=== PATIENT | female | born 1955 | race African-American/Black ===

== ENCOUNTER 2025-07-08 15:25 | Inpatient (IN) | payer MEDICARE, MEDICAID ==
[~2025-07-08] VITALS: Ht 180.3 cm; Wt 95.3 kg
[2025-07-08 15:27] VITALS: O2SAT 98
[2025-07-08 17:13] LABS: HEMATOCRIT. 42.8 % (36.0-48.0); HEMOGLOBIN. 13.7 g/dL (12.0-16.0); MEAN PLATELET VOLUME 11.2 fl (7.4-10.4); PLATELET 293 x1000/uL (130-400); RED BLOOD CELL COUNT 5.23 mill/uL (4.2-5.4); RED CELL DISTRIBUTION WIDTH 14.6 % (11.6-14.6)
[2025-07-08 17:27] LABS: CREATININE 1.3 mg/dL (0.6-1.0)
[2025-07-08 17:28] LABS: UREA NITROGEN BLOOD 46.0 mg/dL (9-23)
[2025-07-08 17:34] LABS: TROPONIN I HIGH SENSITIVITY 150 ng/L (3.0-34)
[2025-07-08] MEDS: KCL 20MEQ/100ML PREMIX 100 ML IV ONE (18:54)
[2025-07-08] MEDS: SODIUM CHLORIDE 0.9% (SEPSIS BOLUS) IV ONE (18:54)
[2025-07-08] MEDS: ASPIRIN 325MG EC TABLET PO ONE (19:05)
[2025-07-08 19:23] LABS: LYMPHOCYTES % MANUAL 5.0 % (20.0-60.0); MONOCYTES % MANUAL 7.0 % (2.0-8.0); NEUTROPHILS % MANUAL 88.0 % (45.0-75.0); PLATELET ESTIMATE NORMAL
[2025-07-08 19:50] LABS: TROPONIN I HIGH SENSITIVITY 94 ng/L (3.0-34)
[2025-07-08] MEDS: CEFTRIAXONE 1GM/50ML 50 ML IV ONE (20:13)
[2025-07-08] MEDS ORDERED: KCL 20MEQ/100ML PREMIX 100 ML IV NR (20:45)
[2025-07-08] MEDS ORDERED: GUAIFENESIN 200MG/10ML SUGAR FREE UDC PO PRN (21:00)
[2025-07-08] MEDS ORDERED: ACETAMINOPHEN 325MG TABLET PO PRN (21:00)
[2025-07-08] MEDS ORDERED: ONDANSETRON HCL 4MG/2ML INJ IV PRN (21:00)
[2025-07-08] MEDS ORDERED: DOCUSATE SODIUM 100MG CAPSULE PO PRN (21:00)
[2025-07-08] MEDS ORDERED: MAGNESIUM/ALUMINUM HYDROXIDE/SIMETHICONE 30ML UDC PO PRN (21:00)
[2025-07-08] MEDS ORDERED: IPRATROPIUM/ALBUTEROL 0.5-3(2.5)MG/3ML NEB HHN PRN (21:00)
[2025-07-08] MEDS: DEXT 5%/LACTATED RINGERS 1,000 ML IV SCH (21:00)
[2025-07-08] MEDS ORDERED: DEXTROSE 50% WATER 50ML SYRINGE IV PRN (21:30)
[2025-07-08 22:36] VITALS: BP 134/88; PULSE 95; RESP 20; TEMP 36.7516
[2025-07-08] MEDS: ENOXAPARIN 40MG/0.4ML SYR SUBCUT SCH (23:40)
[2025-07-09] VITALS: BP 128/83; PULSE 64; RESP 17; TEMP 37.2; O2SAT 100
[2025-07-09 04:00] VITALS: BP 143/75; PULSE 98; RESP 16; TEMP 36.8; O2SAT 100
[2025-07-09] MEDS: BLOOD SUGAR DIAGNOSTIC STRIP TEST SCH (06:17)
[2025-07-09] MEDS: ACETAMINOPHEN 325MG TABLET PO PRN (06:22)
[2025-07-09] MEDS: INSULIN LISPRO 100 UNITS/ML SUBCUT SCH (06:29)
[2025-07-09 07:08] LABS: BASOPHILS % 0.6 % (0.0-2.0); EOSINOPHILS % 0.2 % (0.0-5.0); HEMATOCRIT. 37.3 % (36.0-48.0); HEMOGLOBIN. 12.1 g/dL (12.0-16.0); LYMPHOCYTES % 13.8 % (20.0-50.0); MEAN PLATELET VOLUME 11.4 fl (7.4-10.4); MONOCYTES % 7.8 % (2.0-8.0); NEUTROPHILS % 77.6 % (40.0-76.0); PLATELET 261 x1000/uL (130-400); RED BLOOD CELL COUNT 4.60 mill/uL (4.2-5.4); RED CELL DISTRIBUTION WIDTH 14.0 % (11.6-14.6)
[2025-07-09 07:20] LABS: PROTEIN TOTAL 6.7 g/dL (6.0-8.3)
[2025-07-09 07:22] LABS: CREATININE 1.2 mg/dL (0.6-1.0); TRIGLYCERIDE 110 mg/dL (0-150); UREA NITROGEN BLOOD 46 mg/dL (9-23)
[2025-07-09 07:23] LABS: ASPARTATE AMINOTRANSFERASE 117 IU/L (<34); LDL CHOLESTEROL 97 mg/dL (5-100); T4 FREE 1.41 ng/dL (0.89-1.76)
[2025-07-09 07:24] LABS: BILIRUBIN DIRECT 0.6 mg/dL (<=3.0); PHOSPHORUS 2.7 mg/dL (2.5-4.9)
[2025-07-09 07:25] LABS: BILIRUBIN TOTAL 1.3 mg/dL (0.1-1.0)
[2025-07-09 07:53] LABS: TROPONIN I HIGH SENSITIVITY 183 ng/L (3.0-34)
[2025-07-09 08:00] VITALS: BP 134/82; PULSE 91; RESP 18; TEMP 36.7; O2SAT 100
[2025-07-09 08:28] LABS: CLARITY URINE CLOUDY (CLEAR); COLOR URINE DARK YELLOW (YELLOW); GLUCOSE URINE NEGATIVE (NEGATIVE); KETONES URINE 1+ (NEGATIVE); LEUKOCYTE ESTERASE URINE 1+ (NEGATIVE); NITRITE URINE NEGATIVE (NEGATIVE); OCCULT BLOOD URINE NEGATIVE (NEGATIVE); PH URINE 6.0 (4.5-8.0); PROTEIN URINE 2+ (NEGATIVE); SPECIFIC GRAVITY URINE 1.031 (1.005-1.030); UROBILINOGEN URINE 1.0 E.U./dL (0.2-1.0)
[2025-07-09 09:03] LABS: *AMPHETAMINES SCREEN URINE NEGATIVE (NEGATIVE)
[2025-07-09 09:06] LABS: *BARBITURATES SCREEN URINE NEGATIVE (NEGATIVE); *BENZODIAZEPINES SCREEN URINE NEGATIVE (NEGATIVE); *COCAINE SCREEN URINE NEGATIVE (NEGATIVE); CANNABINOID URINE SCREEN NEGATIVE (NEGATIVE); ECSTASY MDMA SCREEN URINE NEGATIVE (NEGATIVE); METHADONE URINE SCREEN NEGATIVE (NEGATIVE); OPIATES URINE SCREEN NEGATIVE (NEGATIVE); PHENCYCLIDINE URINE SCREEN NEGATIVE (NEGATIVE)
[2025-07-09] MEDS: MULTIVITAMINS,THER W-MINERALS TABLET PO SCH (10:04)
[2025-07-09] MEDS: POTASSIUM CHLORIDE 20MEQ/PACKET PO NR (10:04)
[2025-07-09] MEDS: PANTOPRAZOLE SODIUM 40 MG/VIAL IV SCH (10:04)
[2025-07-09 11:00] LABS: ERYTHROCYTE SEDIMENTATION RATE 35 mm/hr (0-30)
[2025-07-09 11:07] LABS: AMORPHOUS SEDIMENT URINE 1+ /lpf; BACTERIA URINE 1+; RBC URINE NONE SEEN /hpf (0-2); SQUAMOUS EPITHELIAL CELL URINE 2+ /lpf (RARE/1+)
[2025-07-09 12:00] VITALS: BP 135/72; PULSE 75; RESP 18; TEMP 36.5; O2SAT 96
[2025-07-09] MEDS: DEXT 5%/0.45% NACL 1000ML 1,000 ML IV SCH (14:30)
[2025-07-09 16:00] VITALS: BP_SYST 140; BP_SYST 158; BP_DIAS 84; BP_DIAS 88; PULSE 92; RESP 18; TEMP 36.8; O2SAT 95
[2025-07-09 17:36] LABS: INFLUENZA TYPE A Presumptive Negative (Pres. Neg.)
[2025-07-09 17:37] LABS: INFLUENZA TYPE B Presumptive Negative (Pres. Neg.); RESPIRATORY SYNCYTIAL VIRUS Not Detected (Not Detectd)
[2025-07-09 20:00] VITALS: BP 126/64; PULSE 97; RESP 18; TEMP 35.9; O2SAT 97
[2025-07-09 20:09] LABS: TROPONIN I HIGH SENSITIVITY 143 ng/L (3.0-34)
[2025-07-09] MEDS: CEFTRIAXONE 2GM/50ML 50 ML IV SCH (21:43)
[2025-07-10] VITALS: BP 130/83; PULSE 98; RESP 17; TEMP 36.6; O2SAT 95
[2025-07-10 04:00] VITALS: BP 154/88; PULSE 54; RESP 16; TEMP 36.5; O2SAT 92
[2025-07-10 08:00] VITALS: BP 140/87; PULSE 84; RESP 16; TEMP 36.6; O2SAT 96
[2025-07-10 08:22] LABS: BASOPHILS % 0.5 % (0.0-2.0); EOSINOPHILS % 1.0 % (0.0-5.0); HEMATOCRIT. 35.5 % (36.0-48.0); HEMOGLOBIN. 11.7 g/dL (12.0-16.0); LYMPHOCYTES % 26.4 % (20.0-50.0); MEAN PLATELET VOLUME 11.6 fl (7.4-10.4); MONOCYTES % 7.6 % (2.0-8.0); NEUTROPHILS % 64.5 % (40.0-76.0); PLATELET 216 x1000/uL (130-400); RED BLOOD CELL COUNT 4.41 mill/uL (4.2-5.4); RED CELL DISTRIBUTION WIDTH 14.1 % (11.6-14.6)
[2025-07-10 08:35] LABS: CREATININE 1.0 mg/dL (0.6-1.0); UREA NITROGEN BLOOD 28 mg/dL (9-23)
[2025-07-10 08:40] LABS: VITAMIN B12 SERUM 1230 pg/mL (211-911)
[2025-07-10 09:03] LABS: TROPONIN I HIGH SENSITIVITY 153 ng/L (3.0-34)
[2025-07-10] MEDS: POTASSIUM CHLORIDE 20MEQ TABLET SR PO NR (11:41)
[2025-07-10 12:00] VITALS: BP 120/71; PULSE 96; RESP 16; TEMP 36.4; O2SAT 97
[2025-07-10 16:00] VITALS: BP 134/65; PULSE 95; RESP 16; TEMP 36.1; O2SAT 98
[2025-07-10 20:00] VITALS: BP 135/75; PULSE 100; RESP 17; TEMP 36.4; O2SAT 98
[2025-07-11] VITALS: BP 159/101; PULSE 91; RESP 18; TEMP 36.6; O2SAT 96
[2025-07-11] MEDS: CLONIDINE 0.1MG TABLET PO PRN (00:06)
[2025-07-11 04:00] VITALS: BP 147/77; PULSE 107; RESP 17; TEMP 36.7; O2SAT 94
[2025-07-11 08:55] LABS: BASOPHILS % 0.5 % (0.0-2.0); EOSINOPHILS % 1.4 % (0.0-5.0); HEMATOCRIT. 33.1 % (36.0-48.0); HEMOGLOBIN. 11.0 g/dL (12.0-16.0); LYMPHOCYTES % 29.1 % (20.0-50.0); MEAN PLATELET VOLUME 11.7 fl (7.4-10.4); MONOCYTES % 8.0 % (2.0-8.0); NEUTROPHILS % 61.0 % (40.0-76.0); PLATELET 196 x1000/uL (130-400); RED BLOOD CELL COUNT 4.16 mill/uL (4.2-5.4); RED CELL DISTRIBUTION WIDTH 13.9 % (11.6-14.6)
[2025-07-11 11:20] VITALS: BP 123/80; PULSE 96; RESP 19; TEMP 36.3; O2SAT 100
[2025-07-11 13:50] LABS: CREATININE 1.0 mg/dL (0.6-1.0); UREA NITROGEN BLOOD 18 mg/dL (9-23)
[2025-07-11] MEDS: VANCOMYCIN 1.75GM PMX (XELLIA) 350 ML IV SCH (14:44)
[2025-07-11 16:00] VITALS: BP 135/75; PULSE 85; RESP 17; TEMP 36.2; O2SAT 93
[2025-07-11 20:00] VITALS: BP 149/87; PULSE 97; RESP 17; TEMP 36.5; O2SAT 100
[2025-07-12] VITALS: BP 134/74; PULSE 86; RESP 16; TEMP 36.2; O2SAT 100
[2025-07-12] MEDS: VANCOMYCIN 750MG PREMIX 150 ML IV SCH (03:23)
[2025-07-12 04:00] VITALS: BP 136/61; PULSE 98; RESP 16; TEMP 37; O2SAT 97
[2025-07-12 08:00] VITALS: BP 145/75; PULSE 105; RESP 18; TEMP 36.4; O2SAT 99
[2025-07-12 12:00] VITALS: BP 167/99; PULSE 105; RESP 18; TEMP 36.3; O2SAT 100
[2025-07-12] MEDS ORDERED: ASPI-1406 MT (14:01)
[2025-07-12] MEDS ORDERED: LIP40 MT (14:02)
[2025-07-12] MEDS ORDERED: LISI30TA36 MT (14:05)
[2025-07-12] MEDS ORDERED: LOSA25TA26 PO (14:05)
[2025-07-12] MEDS ORDERED: CEFI400C4 PO (14:07)
[2025-07-12 16:00] VITALS: BP 140/89; PULSE 102; RESP 18; TEMP 36.3; O2SAT 99
[2025-07-12 20:00] VITALS: BP 123/79; PULSE 102; RESP 18; TEMP 36.4; O2SAT 97
[2025-07-13] VITALS: BP 120/80; PULSE 101; RESP 18; TEMP 36.3; O2SAT 97
[2025-07-13 04:00] VITALS: BP 149/75; PULSE 68; RESP 18; TEMP 36.6; O2SAT 96
[2025-07-13 07:23] LABS: CREATININE 0.8 mg/dL (0.6-1.0)
[2025-07-13 07:24] LABS: UREA NITROGEN BLOOD 11 mg/dL (9-23)
[2025-07-13 08:00] VITALS: BP 155/95; PULSE 100; RESP 16; TEMP 36.3; O2SAT 99
[2025-07-13 12:00] VITALS: BP 155/79; PULSE 100; PULSE 106; RESP 18; TEMP 36.2; TEMP 36.3; O2SAT 100
[2025-07-13] MEDS: POTASSIUM CHLORIDE 20MEQ TABLET SR PO NR (12:52)
[2025-07-13 16:00] VITALS: BP 147/97; PULSE 61; RESP 18; TEMP 35.8; O2SAT 100
[2025-07-13 20:00] VITALS: BP 151/78; PULSE 103; RESP 18; TEMP 36.1; O2SAT 100
[2025-07-13] MEDS: VANCOMYCIN 1GM/200ML PMX (BAXTER) IV SCH (21:04)
[2025-07-14] VITALS: BP 151/106; PULSE 98; RESP 17; TEMP 36.7; O2SAT 99
[2025-07-14 04:00] VITALS: BP 178/95; PULSE 100; RESP 16; TEMP 36.7; O2SAT 97
[2025-07-14 08:00] VITALS: BP 158/103; PULSE 83; RESP 17; TEMP 36.9; O2SAT 96
[2025-07-14 12:00] VITALS: BP 120/66; PULSE 78; RESP 18; TEMP 36.3; O2SAT 95
[2025-07-14 16:00] VITALS: BP 128/68; PULSE 85; RESP 17; TEMP 36.6; O2SAT 94
[2025-07-14 20:00] VITALS: BP 127/76; PULSE 83; RESP 18; TEMP 36.4; O2SAT 99
[2025-07-15] VITALS: BP 147/85; PULSE 91; RESP 16; TEMP 37.2; O2SAT 99
[2025-07-15 04:00] VITALS: BP 149/84; PULSE 87; RESP 17; TEMP 36.6; O2SAT 99
[2025-07-15 12:00] VITALS: BP 139/84; PULSE 90; RESP 20; TEMP 36.6; O2SAT 100
[2025-07-15 12:47] LABS: CREATININE 0.8 mg/dL (0.6-1.0)
[2025-07-15 12:48] LABS: UREA NITROGEN BLOOD 8 mg/dL (9-23)
[2025-07-15 17:10] VITALS: BP 137/80; PULSE 80; RESP 18; TEMP 97.3
[2025-07-15] MEDS ORDERED: VANCOMYCIN 1.25GM/250ML 250 ML IV SCH (18:00)
== END 2025-07-15 18:20 | DRG 871 ==
LOC: ER 15:25 → 5WST 18:45 → EDBEDREQTM 18:51 → EDBEDREQ 18:51 → 5WST 20:46
PROVIDERS: ADMIT Hospitalist; ATTEND Hospitalist
PROC: GZ56ZZZ Individual Psychotherapy, Supportive (ICD-10-PCS; 2025-07-11)
PROC: 4A00X4Z Measurement of Central Nervous Electrical Activity, External Approach (ICD-10-PCS; principal; 2025-07-12)
DX: A41.9 Sepsis, unspecified organism (principal); G92.8 Other toxic encephalopathy; L89.323 Pressure ulcer of left buttock, stage 3; L89.313 Pressure ulcer of right buttock, stage 3; G93.6 Cerebral edema; R53.2 Functional quadriplegia; I21.A1 Myocardial infarction type 2; E87.20 Acidosis, unspecified; E87.0 Hyperosmolality and hypernatremia; N17.9 Acute kidney failure, unspecified; N39.0 Urinary tract infection, site not specified; I12.9 Hypertensive chronic kidney disease with stage 1 through stage 4 chronic kidney disease, or unspecified chronic kidney disease; N18.9 Chronic kidney disease, unspecified; F32.9 Major depressive disorder, single episode, unspecified; R73.9 Hyperglycemia, unspecified; E86.0 Dehydration; E87.6 Hypokalemia; E83.52 Hypercalcemia; Z86.73 Personal history of transient ischemic attack (TIA), and cerebral infarction without residual deficits; E78.5 Hyperlipidemia, unspecified; Z79.899 Other long term (current) drug therapy
CPT/HCPCS: 36415; 70551; 71045; 76770; 80048; 80061; 80076; 80202; 80305; 81003; 82140; 82550; 82607; 82962; 83036; 83605; 83735; 83880; 84100; 84145; 84439; 84443; 84484; 85025; 85651; 87077; 87420; 87804; 93005; 93306; 93970; 95816; 97163; 97166; 99285; A4606; A4615; J0696; J1650; J1815; J2470; J3373; J3480; J7030